=== PATIENT | female | born 1985 | race Asian ===

== ENCOUNTER 2023-05-08 09:00 | Outpatient (RCR) | payer OTHER, SELFPAY ==
--- NOTE | 2023-04-09 11:57 | OPREHPOC ---
Outpatient Therapy Plan of Care This is a Multidisciplinary Plan of Care that may contain components documented by all disciplines (PT, OT, and ST.) PT Problem 1 PT Problem #1 Knowledge Deficit PT Goal 1 Goal 1. Patient will perform independent HEP 2. Patient will verbalize urge suppression strategies Target Visit 5 PT Problem 2 PT Problem #2 Pain PT Goal 1 Goal 1. Patient will report no pain with pelvic floor palpation 2. Patient able to urinate and do other ADL's with pain no higher than 2/10 Target Visit 5 PT Problem 3 PT Problem #3 Impaired Functional ADLs PT Goal 1 Goal 1. Patient will be able to do all normal work and daily activities without avoiding fluid to decrease urination Target Visit 5
--- NOTE | 2023-04-09 11:57 | PTOPEVAL1 ---
Assessment and note entered by Kiera Thakur DPT Evaluation Information Assessment Status Evaluation Subjective Information Pt reports 2 years ago her urologist diagnosed her with overactive bladder and pelvic pressure. Reports she is having a lot of cramping type pain. Highest pain 8/10 and lowest pain 5/10. Pain with sexual activity and feels like something is sitting on my bladder all day long . Urinates 10 times a day and 1 time at night. Denies pain with urination. Can hold urge up to 60 minutes but will increase the pain. No urinary incontinence. Pt has been diagnosed with IBS and BM 2 times a day. No pain with BM or fecal incontinence. Previous pain with pap smears. Hysterectomy in 2017. Diagnosed with endometriosis. Pt reports she avoids fluids at times to avoid having to pee more frequently. Pt has been 2 times, vaginal deliveries without complications but bedrest with both. Returns to urologist in May, states she just had her overactive bladder medicine changed. Patient goal: decrease difficulty doing her normal daily activities, decrease pain Reported Pain Level Pain Score 6: Self Report Assessment PT Clinical Summary The patient is presenting to skilled therapy with a history of increased urinary frequency and diagnosis of overactive bladder in addition to pelvic pain. She presents with increased pelvic floor muscle tone and pain with palpation which are contributing to her pain and urinary symptoms. She will highly benefit from therapy to address these impairments in order to reduce pain, reduce frequency of urination, and improve function. Plan of Care Interventions Electrical Stimulation,Hot Pack/Cold Pack,Manual Therapy,Neuro Re-education,Patient/Caregiver Education,Therapeutic Activities,Therapeutic Exercise PT Services Indicated Yes Treatment Frequency and 1 time a week for 4 visits Duration These treatments will address the objective and functional deficits as defined above. The patient will be advanced safely and appropriately in order for the patient to progress towards his/her prior level of function. Additional exercises will be introduced and as well as a comprehensive home exercise program upon discharge, if needed, ?to ensure carryover of functional gains achieved in the clinic. This treatment plan has been reviewed and agreement upon by the patient.
--- NOTE | 2023-05-08 09:34 | OPREHPOC ---
Outpatient Therapy Plan of Care This is a Multidisciplinary Plan of Care that may contain components documented by all disciplines (PT, OT, and ST.) PT Problem 1 PT Problem #1 Knowledge Deficit PT Goal 1 Goal 1. Patient will perform independent HEP 2. Patient will verbalize urge suppression strategies Target Visit 5 Progress Met PT Problem 2 PT Problem #2 Pain PT Goal 1 Goal 1. Patient will report no pain with pelvic floor palpation 2. Patient able to urinate and do other ADL's with pain no higher than 2/10 Target Visit 5 Progress Met PT Problem 3 PT Problem #3 Impaired Functional ADLs PT Goal 1 Goal 1. Patient will be able to do all normal work and daily activities without avoiding fluid to decrease urination Target Visit 5 Progress Partially Met
--- NOTE | 2023-05-08 09:34 | PTOPDC ---
Assessment and note entered by Kiera Thakur DPT Evaluation Information Assessment Status Discharge Subjective Information Pt reports she is feeling good with therapy. Reports she has not had any real pain in the last week. Has still had the urge/discomfort to void after holding it too long. Urinating at least 4 times a day recently. Can hold urge up to an hour. Denies urine leakage. Feels she able to do more at work and home without getting interference from having to void frequently. Recently took a trip to [place] and only had to stop to void 2 times after expecting to have to stop 50 times . Reported Pain Level Pain Score 0: Self Report Assessment PT Clinical Summary The patient has made excellent progress in therapy and reports no real pain in the last week. She also reports she is voiding typically 4 times a day and is able to hold longer before needing to void. She demonstrates improved LE and core strength and no pain with palpation of pelvic floor this visit. Due to her progress, plan for discharge at this time. She has been educated in use of pelvic wand or dilator for HEP to continue addressing increased pelvic floor muscle tone and to follow up with MD and/or PT as needed. Plan of Care PT Services Indicated No
== END 2023-05-08 10:09 | disposition home or self-care (01) ==
LOC: ANHPT 09:00
PROVIDERS: PCP Family Medicine Sports Medicine
DX: R39.15 Urgency of urination (principal); N94.89 Other specified conditions associated with female genital organs and menstrual cycle; R31.29 Other microscopic hematuria
CPT/HCPCS: 97110; 97140; 97162; 97530